=== PATIENT | male | born 1955 | race Caucasian/White ===

== ENCOUNTER → 2016-07-13 | Outpatient (CLI) | payer BC ==
[~2016-07-13] MED LIST: ASPI-232 PO; CIPR-255 PO; CLC100 PO; CLS1 PO; DTR5 PO; MULT1CAP17 PO
== END | disposition home or self-care (01) ==
LOC: C.LABMFLN 08:58
PROVIDERS: ATTEND Family Medicine
DX: E78.00 Pure hypercholesterolemia, unspecified (principal)